=== PATIENT | female | born 1935 | race Caucasian/White ===

== ENCOUNTER → 2017-04-25 | Outpatient (CLI) | payer MEDICARE, OTHER ==
[~2017-04-25] MED LIST: ASPIRIN81 M1 PO; COREG12.5 MG PO; DIOVAN 12.5 MG-1 TAB PO; KLOR-CON M2020 MEQ PO; MAXZIDE 50 MG-71 TA1 PO; MOTRIN800 MG PO; PREVACID15 MG; Synthroid,Levo50 MCG PO; VITAMIN D1000 IU PO; ZANTAC 150150 MG PO; ZOCOR20 MG PO
== END | disposition home or self-care (01) ==
LOC: CANPRECLI → ORTHO 01:58
DX: Z53.9 Procedure and treatment not carried out, unspecified reason (principal)

== ENCOUNTER → 2019-07-13 | Outpatient (CLI) | payer MEDICARE, OTHER | END | disposition home or self-care (01) | LOC: US 09:47 | DX: K76.0 Fatty (change of) liver, not elsewhere classified (principal) ==

== ENCOUNTER → 2020-12-01 | Outpatient (CLI) | payer MEDICARE, OTHER | END | disposition home or self-care (01) | LOC: ORTHO 00:16 | PROVIDERS: ATTEND Orthopaedic Surgery | DX: M25.511 Pain in right shoulder (principal) ==